=== PATIENT | female | born 1955 | race Caucasian/White ===

== ENCOUNTER → 2017-03-09 | Outpatient (CLI) | payer OTHER | LOC: FIMAGING 14:41 | PROVIDERS: ATTEND Internal Medicine | DX: Z12.31 Encounter for screening mammogram for malignant neoplasm of breast (principal) | CPT/HCPCS: G0202 ==

== ENCOUNTER 2017-04-30 08:15 | Emergency (ER) | payer OTHER ==
[2017-04-30 08:21] VITALS: TEMP 98.2
--- NOTE | 2017-04-30 08:28 | CPEKG ---
Heart Rate: 113 RR Interval: 531 QRSD Interval: 78 QT Interval: 364 QTC Interval: 500 QRS [place]: 92 T Wave [place]: 12 EKG Severity - ABNORMAL ECG - EKG Impression: ATRIAL FIBRILLATION EKG Impression: BORDERLINE RIGHT AXIS DEVIATION EKG Impression: BORDERLINE PROLONGED QT INTERVAL Electronically Signed By: Tone Monaco 30-Apr-2017 15:52:25
[2017-04-30] MEDS ORDERED: NS 1,000 ML IV ONE (08:34)
[2017-04-30] MEDS ORDERED: METOPROLOL TARTRATE 25 MG TAB PO ONE (08:53)
[2017-04-30] MEDS ORDERED: ENOXAPARIN 60 MG/0.6 ML SYR SC ONE ×2 (08:53→09:54)
--- NOTE | 2017-04-30 08:53 | EDPHY ---
H & P Time Seen by Provider: 04/30/17 08:24 HPI/ROS: Chief complaint. Palpitations HPI. 61-year-old female presents emergency department with irregular heartbeat. She was awakened at about 2:00 a.m. to go to the bathroom and noticed that she had palpitations. She has had this before and normally is resolved with taking deep breath. She took some deep breaths which did not resolve her symptoms. She did go to the bathroom and went back to bed and then symptoms continued this morning. She has sensation of being lightheaded, fatigued, cold sweats. No chest discomfort although sense of palpitations. No shortness of breath. No fever cough. She notes increased stress. No unusual leg pain or swelling. No history of atrial fibrillation. ROS Constitutional. Fatigue Eyes. no problems with vision ENT. no sore throat, no nasal drainage Cardiovascular. Palpitations Respiratory. no shortness of breath, no cough Abdominal. no abdominal pain, no nausea/vomiting, no diarrhea . no problems urinating MS. no calf pain/swelling, no neck/back pain, no joint pain Skin. no rash Lymph. no swollen glands Neuro. Light headed Past Medical/Surgical History: Osteoporosis, chronic fatigue Family history atrial fibrillation in brother and mother Social History: , nonsmoker, no alcohol Smoking Status: Never smoked Physical Exam: General Appearance: Alert well-developed female mild distress vital signs significant for heart rate 116 Eyes: Pupils equal and round no pallor or injection. ENT, Mouth: Mucous membranes are moist. Respiratory: There are no retractions, lungs are clear to auscultation. Cardiovascular: Irregularly irregular rate and rhythm Gastrointestinal: Abdomen is soft and nontender, no masses, bowel sounds normal. Neurological: Awake and alert, sensory and motor exams grossly normal. Skin: Warm and dry, no rashes. Musculoskeletal: Neck is supple nontender. Extremities symmetrical, full range of motion. Psychiatric: Patient is oriented X 3, there is no agitation. Constitutional: Initial Vital Signs Temperature (C) 36.8 C 04/30/17 08:18 Heart Rate 116 H 04/30/17 08:18 Respiratory Rate 20 04/30/17 08:18 Blood Pressure 113/86 H 04/30/17 08:18 O2 Sat (%) 97 04/30/17 08:18 O2 Delivery Mode [Post Room Air Procedure 2nd] O2 Delivery Mode [Post Non-Rebreather Mask Procedure 1st] O2 Delivery Mode [Procedural Non-Rebreather Mask 3rd] O2 Delivery Mode [Procedural Non-Rebreather Mask 2nd] O2 Delivery Mode [Procedural Room Air 1st] O2 Delivery Mode [.Immediate Non-Rebreather Mask Pre-Procedure] O2 Delivery Mode Room Air O2 (L/minute) [Post Procedure 15 1st] O2 (L/minute) [Procedural 3rd] 15 O2 (L/minute) [Procedural 2nd] 15 O2 (L/minute) [.Immediate Pre- 15 Procedure] O2 (L/minute) 15 Allergies/Adverse Reactions: amoxicillin Allergy (Verified 04/30/17 08:17) Sulfa (Sulfonamide Antibiotics) Allergy (Verified 04/30/17 08:17) Home Medications: Medication Instructions Recorded ALENDRONATE SODIUM 04/30/17 Bria Leigh 10,000 Unit Capsule 04/30/17 Medical Decision Making - Diagnostics EKG Interpretation: EKG interpreted by me shows atrial fibrillation normal axis. QRS is normal there is no significant ST elevation or depression. The rate is 113 Post cardioversion EKG shows sinus bradycardia with normal interval and axis. QRS is normal there is no significant ST elevation or depression. No arrhythmia. The rate is 47 Imaging Results: Imaging Impressions Chest X-Ray 04/30/17 08:54 Impression: Negative. Procedures: IV normal saline, monitor. Metoprolol orally. Lovenox subcu Procedure: Conscious sedation. Indication: Cardioversion I was asked by Dr. Pérez to perform sedation. The patient is an appropriate candidate to tolerate procedural sedation. The patient's vital signs and mental status are appropriate. The risks, benefits and alternatives of the sedation were discussed with the patient. The patient is ASA classification 1. The patient's Mallampati airway score was 1 and the patient did meet the 3-3- 2 airway measurements. A time out was completed. The patient was sedated with propofol 100 mg IV. The patient was monitored with continuous pulse oximetry, automatic spinning lathe setter and end tidal CO2. There were no complications and no significant hypoxemia. I performed the sedation The total time I spent at the bedside during the procedural sedation was 20 minutes. The patient was examined after the procedural sedation and has returned to their pre-sedation baseline with normal vital signs and a normal examination. ED Course/Re-evaluation: Serial evaluations patient is stable. She still in atrial fibrillation at 10:50 a.m.. Blood pressure 145/85. Ventricular response is 69. Patient, her , and I discussed imaging and lab results and EKG findings. We discussed treatment plan. They expressed understanding and agreement I consulted and discussed the case with Dr. Pérez, cardiology, who agrees with cardioversion. He will see the patient in the emergency department Cardioversion results in normal sinus rhythm. Re-evaluation again at 11:32 a.m.--patient is stable. She and I discussed procedure and treatment plan. She expresses understanding Differential Diagnosis: Atrial fibrillation I considered electrolyte abnormality, acute coronary syndrome, hypertension - Data Points Laboratory Results: Laboratory Results 04/30/17 08:39 04/30/17 08:39 04/30/17 04/30/17 04/30/17 08:39 08:39 08:39 WBC 4.24 10^3/uL 10^3/uL (3.80-9.50) RBC 4.60 10^6/uL 10^6/uL (4.18-5.33) Hgb 15.2 g/dL g/dL (12.6-16.3) Hct 44.6 % % (38.0-47.0) MCV 97.0 fL fL (81.5-99.8) MCH 33.0 pg pg (27.9-34.1) MCHC 34.1 g/dL g/dL (32.4-36.7) RDW 12.3 % % (11.5-15.2) Plt Count 219 10^3/uL 10^3/uL (150-400) MPV 10.8 fL fL (8.7-11.7) Neut % (Auto) 56.0 % % (39.3-74.2) Lymph % (Auto) 36.8 % % (15.0-45.0) [place] % (Auto) 5.2 % % (4.5-13.0) Eos % (Auto) 0.9 % % (0.6-7.6) Baso % (Auto) 0.9 % % (0.3-1.7) Nucleat RBC Rel Count 0.0 % % (0.0-0.2) Absolute Neuts (auto) 2.37 10^3/uL 10^3/uL (1.70-6.50) Absolute Lymphs (auto) 1.56 10^3/uL 10^3/uL (1.00-3.00) Absolute Monos (auto) 0.22 10^3/uL L 10^3/uL (0.30-0.80) Absolute Eos (auto) 0.04 10^3/uL 10^3/uL (0.03-0.40) Absolute Basos (auto) 0.04 10^3/uL 10^3/uL (0.02-0.10) Absolute Nucleated RBC 0.00 10^3/uL 10^3/uL (0-0.01) Immature Gran % 0.2 % % (0.0-1.1) Immature Gran # 0.01 10^3/uL 10^3/uL (0.00-0.10) PT 15.0 SEC SEC (12.0-15.0) INR 1.16 (0.83-1.16) APTT 28.8 SEC SEC (23.0-38.0) Sodium 143 mEq/L mEq/L (135-145) Potassium 3.8 mEq/L mEq/L (3.5-5.2) Chloride 104 mEq/L mEq/L (97-110) Carbon Dioxide 26 mEq/l mEq/l (22-31) Anion Gap 13 mEq/L mEq/L (8-16) BUN 25 mg/dL H mg/dL (7-23) Creatinine 0.8 mg/dL mg/dL (0.6-1.0) Estimated GFR > 60 Glucose 101 mg/dL H mg/dL (70-100) Calcium 9.5 mg/dL mg/dL (8.5-10.4) Troponin I < 0.012 ng/mL ng/mL (0.000-0.034) Medications Given: Discontinued Medications Enoxaparin Sodium (Lovenox) 53 mg SC EDNOW ONE Stop: 04/30/17 08:54 Last Admin: 04/30/17 09:56 Dose: Not Given Enoxaparin Sodium (Lovenox) 60 mg SC EDNOW ONE Stop: 04/30/17 09:55 Last Admin: 04/30/17 10:00 Dose: 60 mg Sodium Chloride (Ns) 1,000 mls @ 0 mls/hr IV EDNOW ONE; Wide Open PRN Reason: Protocol Stop: 04/30/17 08:35 Last Admin: 04/30/17 08:54 Dose: 1,000 mls Metoprolol Tartrate (Lopressor) 25 mg PO EDNOW ONE Stop: 04/30/17 08:54 Last Admin: 04/30/17 09:24 Dose: 25 mg Departure - Departure Disposition: Home, Routine, Self-Care Clinical Impression: Atrial fibrillation Qualifiers: Atrial fibrillation type: unspecified Qualified Code(s): I48.91 - Unspecified atrial fibrillation Condition: Good Instructions: A-fib (Atrial Fibrillation) (ED) Additional Instructions: Eliquis as a blood thinner that has been prescribed for Dr. Pérez. Return to the emergency department for further palpitations or sensation of atrial fibrillation as well as including chest discomfort or trouble breathing. Call Dr. pérez's office tomorrow to arrange follow-up evaluation. Referrals: Catherine Kwan DO [Primary Care Provider] - As per Instructions Graham Pérez MD [Medical Doctor] - As per Instructions
[2017-04-30 09:04] LABS: PLATELET COUNT 219 10^3/uL (150-400)
[2017-04-30 09:13] LABS: INR 1.16 (0.83-1.16)
[2017-04-30] MEDS ORDERED: PROPOFOL 200 MG/20 ML VIAL ONE (10:30)
--- NOTE | 2017-04-30 11:28 | CPEKG ---
Heart Rate: 47 RR Interval: 1277 P-R Interval: 176 QRSD Interval: 86 QT Interval: 460 QTC Interval: 407 P [place]: 71 QRS [place]: 63 T Wave [place]: 30 EKG Severity - BORDERLINE ECG - EKG Impression: SINUS BRADYCARDIA EKG Impression: LOW VOLTAGE THROUGHOUT Electronically Signed By: Tone Monaco 30-Apr-2017 15:52:18
[2017-04-30 11:47] VITALS: RESP 16
[2017-04-30 12:25] VITALS: BP 106/66; PULSE 57; O2SAT 95
--- NOTE | 2017-04-30 13:27 | GCON ---
[f rep st] CONSULTATION CARDIOLOGY CONSULTATION DATE OF CONSULTATION: 04/30/2017 REFERRING PHYSICIAN: Tone Monaco MD INDICATIONS: Atrial fibrillation. HISTORY OF PRESENT ILLNESS: Ms. Parks is a pleasant 61-year-old female, who at her baseline is very h ealthy. She notes that beginning last night in the early hours of the morning, she developed palpita tions associated with symptoms of fatigue. Her has a history of atrial fibrillation and ther efore she immediately recognized the symptoms. She had no chest pain or pressure. She noted no sign ificant dyspnea. As a result, she came to the emergency department with these complaints. On arriva l, she was hemodynamically stable. Her initial electrocardiogram demonstrated atrial fibrillation, w ith a resting heart rate of 113 beats per minute. She had no significant ST or T changes. She was t reated with a dose of p.o. metoprolol 25 mg and was given Lovenox 60 mg subcu. We are asked to see t he patient. PAST MEDICAL HISTORY: She states that she has had problems with osteoporosis and chronic fatigue. MEDICATIONS: As an outpatient, she takes alendronate and Zenpep. ALLERGIES: To amoxicillin and sulfa. FAMILY HISTORY: Significant for atrial fibrillation in both her brother and mother. SOCIAL HISTORY: She is , accompanied by her . She has never been a smoker. She does not use alcohol or drugs. REVIEW OF SYSTEMS: A full 10-point review of systems was performed and is otherwise negative. PHYSICAL EXAMINATION: VITAL SIGNS: Her blood pressure is 131/94 with a heart rate of 106 and room a ir saturations of 97%. She is afebrile. GENERAL: She is healthy, in no acute distress. HEENT: No jugular venous distention, adenopathy or thyromegaly. RESPIRATORY: She is breathing easy and speak s in full sentences. She is resting comfortably, using no accessory muscles. CARDIOVASCULAR: On au scultation, she has an irregularly irregular rhythm with a 1/6 systolic ejection murmur at left dubon al border. ABDOMEN: Soft and nontender. Normoactive bowel sounds. She has no hepatosplenomegaly o r masses. Abdominal aorta is nonpalpable. EXTREMITIES: Warm and dry and well perfused with no lowe r extremity edema. VASCULATURE: She has 2+ radial and dorsal pedal pulses. NEUROLOGIC: She is ilir rt and oriented with a pleasant mood and affect. LABORATORY DATA: White blood cell count 4.24, hematocrit 44.6, platelet count 219,000. INR 1.16. S odium 143, potassium 3.8, BUN 25, creatinine 0.8, glucose 101. Troponin negative at less than 0.012. IMPRESSION: Ms. Parks is 61 years old and presents now with her 1st episode of atrial fibrillation. Her CHADSVASc score is 1 given her history of female gender. She is low risk for near-term events. Symptoms include palpitations and fatigue. RECOMMENDATIONS: 1. At the present time, I think the patient can safely undergo CHOLO cardioversion. This was discusse d with Dr. Monaco. We will plan to proceed once we have echocardiography at the bedside. 2. I will start her on anticoagulation in the form of Eliquis 5 mg twice daily for 1 month. 3. I will have her follow up with me within the next several weeks as an outpatient. I will continu e her workup at that time. /[id number]/MODL
== END 2017-04-30 12:23 | disposition home or self-care (01) ==
DX: I48.91 Unspecified atrial fibrillation (principal); E86.9 Volume depletion, unspecified
CPT/HCPCS: J1650; J2704

== ENCOUNTER → 2017-06-02 | Outpatient (CLI) | payer OTHER | LOC: FIMAGING 14:55 | PROVIDERS: ATTEND Internal Medicine | DX: M81.0 Age-related osteoporosis without current pathological fracture (principal); Z78.0 Asymptomatic menopausal state; Z82.62 Family history of osteoporosis ==

== ENCOUNTER 2017-06-23 11:56 | Day surgery (SDC) | payer OTHER ==
[2017-06-23] MEDS ORDERED: FAMOTIDINE 20 MG TAB PO ONE (12:00)
[2017-06-23] MEDS ORDERED: DIAZEPAM 5 MG TAB PO ONE (12:00)
[2017-06-23] MEDS ORDERED: ACETAMINOPHEN 325 MG TAB PO PRN (12:00)
[2017-06-23] MEDS ORDERED: NITROGLYCERIN 0.4 MG BTL SL PRN (12:00)
[2017-06-23] MEDS ORDERED: NS 1,000 ML IV SCH (12:00)
[2017-06-23] MEDS ORDERED: TEMAZEPAM 15 MG CAP PO PRN (12:00)
[2017-06-23] MEDS ORDERED: diphenhydrAMINE 25 MG CAP PO ONE (12:00)
[2017-06-23] MEDS ORDERED: ASPIRIN EC 325 MG TAB PO ONE (12:00)
--- NOTE | 2017-06-23 12:21 | CPEKG ---
Heart Rate: 52 RR Interval: 1154 P-R Interval: 168 QRSD Interval: 94 QT Interval: 456 QTC Interval: 424 P [place]: 74 QRS [place]: 67 T Wave [place]: 34 EKG Severity - NORMAL ECG - EKG Impression: SINUS RHYTHM Electronically Signed By: Gabo Yanez 23-Jun-2017 14:15:39
[2017-06-23 12:44] LABS: PLATELET COUNT 195 10^3/uL (150-400)
[2017-06-23 12:57] LABS: INR 1.18 (0.83-1.16); PROTIME(PATIENT) 15.2 SEC (12.0-15.0)
--- NOTE | 2017-06-23 13:30 | PDHPUP ---
History & Physical Update H&P update statement: This history and physical update is based on an assessment of the patient which was completed after admission or registration (within 24 hours), but prior to the surgery/procedure. H&P update: H&P reviewed & patient examined, no change in patient's condition since H&P completed
--- NOTE | 2017-06-23 13:30 | PDPROPOC ---
Sedation Plan of Care Sedation Plan of Care: vital signs stable, mental status noted, patient educated of risks, benefits, alternatives, patient can tolerate sedation ASA Classification: ASA 1 Planned drugs: fentanyl, midazolam Mallampati Score: Class 1 Mallampati Reference Image: Patient passed 3-3-2 rule?: Yes
[2017-06-23] MEDS ORDERED: LIDOCAINE 1% 300 MG/30 ML SDV ONE (15:08)
[2017-06-23] MEDS ORDERED: MIDAZOLAM 2 MG/2 ML VIAL ONE (15:08)
[2017-06-23] MEDS ORDERED: fentaNYL 100 MCG/2 ML INJ ONE (15:08)
[2017-06-23] MEDS ORDERED: IOPAMIDOL (ISOVUE-370) 150 ML BTL IV ONE (15:09)
[2017-06-23] MEDS ORDERED: ONDANSETRON 4 MG/2 ML VIAL IVP PRN (17:05)
[2017-06-23] MEDS ORDERED: HYDROCODONE/APAP 5/325 TAB PO PRN (17:05)
[2017-06-23] MEDS ORDERED: ATROPINE SULFATE 1 MG/10 ML SYR IVP PRN (17:05)
--- NOTE | 2017-06-23 17:10 | PDDXCAT ---
Diagnostic Cath Note - . Date: 06/23/17 Follow Up Manager: Hood Indication: other (PVCs and short runs of nonsustained VT on ETT) - Procedure Access: right groin Procedure: left heart catheterization, coronary angiography, left ventriculogram - Materials Left Heart Cath size: 6F Left Heart Cath materials: standard multipack (JL4, JR4, pigtail) - Findings-Left Heart Catheterization LM: Angiographically normal. LAD: Angiographically normal. LCX: Angiographically normal. RCA: Minimal coronary irregularities involving the mid-RCA and associated with mild fluoroscopic calcification. EDP: 14 mmHg LVEF: 60% Wall motion: Normal Complications: None Estimated blood loss: <50ml Closure method: Angioseal Assessment: 1) Minimal coronary atherosclerosis. 2) Normal LV systolic function. Plan: The patient has minimal coronary atherosclerosis involving the RCA. Her LDL cholesterol is 127. Atorvastatin 20 mg daily will be started in an effort to achieve an LDL cholesterol definitely less than 100 and preferably less than 70.
[2017-06-24] MEDS ORDERED: ATORVASTATIN CALCIUM 20 MG TAB PO SCH (09:00)
== END 2017-06-23 19:44 | disposition home or self-care (01) ==
LOC: FCATH 11:56
PROVIDERS: ATTEND Internal Medicine Interventional Cardiology
DX: I25.10 Atherosclerotic heart disease of native coronary artery without angina pectoris (principal); D64.9 Anemia, unspecified; R53.82 Chronic fatigue, unspecified; M81.0 Age-related osteoporosis without current pathological fracture
CPT/HCPCS: C1760; J1644; J2250; J3010; Q9967

== ENCOUNTER → 2018-03-11 | Outpatient (CLI) | payer OTHER | LOC: FIMAGING 10:01 | PROVIDERS: ATTEND Orthopaedic Surgery Hand Surgery | DX: S63.642A Sprain of metacarpophalangeal joint of left thumb, initial encounter (principal) ==

== ENCOUNTER → 2018-03-16 | Outpatient (CLI) | payer OTHER | LOC: FIMAGING 09:29 | PROVIDERS: ATTEND Specialist | DX: Z12.31 Encounter for screening mammogram for malignant neoplasm of breast (principal) ==